=== PATIENT | female | born 1940 | race Caucasian/White ===

== ENCOUNTER 2021-06-25 10:57 | Emergency (ER) | payer MEDICARE ==
[2021-06-25] MEDS ORDERED: BUPIVACAINE 0.5% PF 10 ML VIAL SUBQ ONE (12:27)
[2021-06-25] MEDS ORDERED: HYDROmorphone 0.5 MG/0.5 ML SYRINGE IVP STA (12:29)
[2021-06-25] MEDS ORDERED: AMPICILLIN/SULBACTAM 3 GM in SODIUM CHLORIDE 0.9% MINIBAG 100 ML IV STA (12:29)
--- NOTE | 2021-06-25 12:32 | ED Physician Documentation ---
PD HPI UPPER EXT INJURY - Stated complaint Stated Complaint: CAT SCRATCH RT HAND - Chief complaint Chief Complaint: Ext Problem - History obtained from History obtained from: Patient, Family - Additonal information Additional information: The patient comes to the emergency department chief complaint of cat scratch to right wrist. She states that this happened 3 days ago and that it was her own cat that scratched her. The cat was starting to fight with a dog that had come over to visit and the patient tried to intervene. The cat scratch the patient in several places and over the last couple of days, patient has noticed increasing redness of a scratch that occurred over her ulnar styloid. The patient states she has noticed increasing edema of her hand and especially her forearm. She is also noticed a fluctuant area over her wrist scratch. Patient denies fevers or chills. No other complaints at this time. Review of Systems Ten Systems: 10 systems reviewed and negative Constitutional: reports: Reviewed and negative Eyes: reports: Reviewed and negative Ears: reports: Reviewed and negative Nose: reports: Reviewed and negative Throat: reports: Reviewed and negative Cardiac: reports: Reviewed and negative Respiratory: reports: Reviewed and negative GI: reports: Reviewed and negative : reports: Reviewed and negative Skin: reports: Other (Redness/tenderness/swelling distal right upper extremity) Musculoskeletal: reports: Reviewed and negative Neurologic: reports: Reviewed and negative Psychiatric: reports: Reviewed and negative Endocrine: reports: Reviewed and negative Immunocompromised: reports: Reviewed and negative PD PAST MEDICAL HISTORY - Past Medical History Past Medical History: Yes Cardiovascular: None Respiratory: None Neuro: Headaches Endocrine/Autoimmune: None GI: None 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 : None HEENT: None Psych: None Musculoskeletal: Scoliosis, Other Derm: None - Past Surgical History Past Surgical History: Yes HEENT: Tonsil/Adenoidectomy - Present Medications Home Medications: Ambulatory Orders Medication Instructions Recorded Confirmed Amox/Clav 875/125 [Augmentin] 1 each PO Q12H #20 tablet 06/25/21 HYDROcod/ACETAM 5/325 [[place] 5/325] 1 - 2 tablet PO Q6H PRN #14 tablet 06/25/21 - Allergies Allergies/Adverse Reactions: Allergies Allergy/AdvReac Type Severity Reaction Status Date / Time lidocaine Allergy Edema Verified 06/25/21 11:04 - Social History Does the pt smoke?: No Smoking Status: Never smoker Does the pt drink ETOH?: Yes Does the pt have substance abuse?: No - Immunizations Immunizations are current?: No Immunizations: TDAP >10years/unknown PD ED PE NORMAL - Vitals Vital signs reviewed: Yes - General General: Alert and oriented X 3, No acute distress, Well developed/nourished - HEENT HEENT: Atraumatic, PERRL, EOMI, Moist mucous membranes - Neck Neck: Supple, no meningeal sign - Cardiac Cardiac: Strong equal pulses - Respiratory Respiratory: No respiratory distress - Derm Derm: Warm and dry, Other (Erythema, Moderate, right forearm, with moderate tenderness. 3 cm fluctuance and intense erythema with a purulent appearing 4 mm scratch over the ulnar styloid area.) - Extremities Extremities: No deformity, Other (Moderate edema, forearm on right; mild edema of right hand.) - Neuro Neuro: Alert and oriented X 3 - Psych Psych: Normal mood, Normal affect Results - Vitals Vitals: Vital Signs - 24 hr 06/25/21 06/25/21 11:05 14:38 Temperature 36 C L 36.8 C Heart Rate 99 93 Respiratory 18 16 Rate Blood Pressure 156/80 H 153/74 H O2 Saturation 99 97 Oxygen O2 Source Room air Procedures - Abscess I&D (location) Right wrist Preparation: Alcohol, Marcaine 0.5% Incision: Incised with scalpel, Purulent drainage, Irrigated, Packed Other: Pt tolerated well, Dressing applied, Antibiotic prescribed PD MEDICAL DECISION MAKING - ED course Complexity details: considered differential, d/w patient ED course: The patient was started on Unasyn and given a dose of Dilaudid. She stated she was allergic to lidocaine but had been able to have some other kind of local anesthetics, and I explained to her that we could try bupivacaine, though this is in the same family and I cannot guarantee that she will not have an allergic reaction to this. She reported that her reaction to lidocaine had been swelling and blistering. Bupivacaine was administered and patient did not have any discernible reaction to this. Small amount of pus was drained from the abscess cavity and the cavity was irrigated and packed is above. I have prescribed Augmentin for the patient and advised her to return immediately for any signs of worsening. We have also discussed wound care at home and the need for wound recheck and packing removal in 2 days. Departure - Departure Disposition: 01 Home, Self Care Clinical Impression: Abscess, Cat scratch Cellulitis Qualifiers: Site of cellulitis: extremity Site of cellulitis of extremity: upper extremity Laterality: right Qualified Code(s): L03.113 - Cellulitis of right upper limb Condition: Stable Instructions: ED Abscess IandD, ED Infec Skin Cellulitis Prescriptions: Amox/Clav 875/125 [Augmentin] 1 each PO Q12H #20 tablet HYDROcod/ACETAM 5/325 [[place] 5/325] 1 - 2 tablet PO Q6H PRN #14 tablet PRN Reason: Pain Comments: You have been given a dose of IV antibiotics in the emergency department. You had a small abscess, or pus pocket, over the outside of your wrist where the cat scratched you. This is been incised and drained today. This should help with the infection and allowed to the antibiotics to be more effective in getting rid of the infection in your forearm. Please take the antibiotics every day as prescribed. Take your first dose of oral antibiotics this evening. You should elevate your arm whenever possible. You may use the pain medication as needed. Please follow-up in 2 days with either your primary care physician or urgent care/walk-in clinic to have your wound rechecked. If you cannot be seen in either these venues, you may return to the emergency department. At that time, it will be determined whether or not you should have your wound repacked. If you feel like the infection is drastically worsening over the next day or so, please come in immediately for reevaluation. [facility] [place]. Discharge Date/Time: 06/25/21 14:38
[2021-06-25] MEDS ORDERED: BUPIVACAINE 0.5% PF 30 ML VIAL SUBQ ONE (14:00)
[2021-06-25 14:38] VITALS: BP 153/74
== END 2021-06-25 14:38 | disposition home or self-care (01) ==
LOC: ED 10:57
DX: S60.811A Abrasion of right wrist, initial encounter (principal); W55.03XA Scratched by cat, initial encounter; L03.113 Cellulitis of right upper limb
CPT/HCPCS: 10060; 96365; 96375; 99282; 99284; J1170

== ENCOUNTER 2021-06-27 10:45 | Emergency (ER) | payer MEDICARE ==
[2021-06-27] MEDS ORDERED: BUPIVACAINE 0.5% PF 10 ML VIAL SUBQ STA (11:13)
--- NOTE | 2021-06-27 11:15 | ED Physician Documentation ---
PD HPI WOUND RECHECK - Stated complaint Stated Complaint: WOUND ON RT FOREARM - Chief complaint Chief Complaint: Wound - Histroy obtained from History obtained from: Patient - Additional information Additional information: This is an 80-year-old woman who was seen by my partner 2 days ago for infected cat scratches to the right wrist. She was given Unasyn and an I&D was done over the ulnar styloid. She returns for packing removal and wound check. Pain is not more less than it was. No fevers or chills. There is a new painful lump though near the distal radius anteriorly. Mild nausea with the Augmentin but doing okay with it. 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 : None HEENT: None Psych: None Musculoskeletal: Scoliosis, Other Derm: None - Past Surgical History Past Surgical History: Yes HEENT: Tonsil/Adenoidectomy - Present Medications Home Medications: Ambulatory Orders Medication Instructions Recorded Confirmed Amox/Clav 875/125 [Augmentin] 1 each PO Q12H #20 tablet 06/25/21 06/27/21 HYDROcod/ACETAM 5/325 [[place] 5/325] 1 - 2 tablet PO Q6H PRN #14 tablet 06/25/21 06/27/21 HYDROcod/ACETAM 5/325 [[place] 5/325] 1 - 2 tab PO Q6H PRN #15 tablet 06/27/21 - Allergies Allergies/Adverse Reactions: Allergies Allergy/AdvReac Type Severity Reaction Status Date / Time lidocaine Allergy Edema Verified 06/27/21 11:01 - Social History Does the pt smoke?: No Smoking Status: Never smoker Does the pt drink ETOH?: Yes Does the pt have substance abuse?: No - Immunizations Immunizations are current?: No Immunizations: TDAP >10years/unknown PD ED PE NORMAL - Vitals Vital signs reviewed: Yes - General General: Alert and oriented X 3, No acute distress - Extremities Extremities: Other (see MDM, text box too small) - Neuro Neuro: Alert and oriented X 3, Normal speech - Psych Psych: Normal mood, Normal affect Results - Vitals Vitals: Vital Signs - 24 hr 06/27/21 10:59 Temperature 36.0 C L Heart Rate 90 Respiratory 16 Rate Blood Pressure 177/75 H O2 Saturation 97 Oxygen O2 Source Room air Procedures - Abscess I&D (location) The abscess on the ulnar styloid was reincised and packed. A new abscess on the radial side was incised and packed Preparation: Confirmed with ultrasound, Marcaine 0.5% (She had a lot of pain previously with the incision and drainage and was premedicated this time with some Dilaudid with good effect) Incision: Incised with scalpel, Loculations broken, Culture obtained Other: Pt tolerated well PD MEDICAL DECISION MAKING - ED course ED course: R wrist exam: Multiple scratches and fairly bruised right forearm with edema about the right wrist. Limited range of motion due to pain but not so limited to suggest a sep tic joint. There was a packed wound near the ulnar styloid and the packing was removed with still significant purulent drainage. There is a new abscess near the radial artery anteriorly. Departure - Departure Disposition: 01 Home, Self Care Clinical Impression: Abscess, Cat scratch Condition: Good Record reviewed to determine appropriate education?: Yes Instructions: ED Abscess IandD Prescriptions: HYDROcod/ACETAM 5/325 [[place] 5/325] 1 - 2 tab PO Q6H PRN #15 tablet PRN Reason: Pain Comments: I sent your prescription electronically to [facility] in [place]. Return Friday morning for packing removal and wound check. Sooner if worsening. Continue antibiotics. I am prescribing a short course of narcotic pain medication for you. These are potentially dangerous and addictive medications that should be used carefully. These medications may constipate you. Take an [id number]-rokvpth stool softener (docusate) twice daily with plenty of water while taking these medications. If you go 24 hours without a bowel movement, take [id number] miralax, per package instructions. Do not drink or drive while taking these medications. If you received narcotic or sedating medications while in the emergency department, do not drive for 24 hours. Store this medication in a safe, secure place and out of reach of children. It is a violation of federal law to give or sell this medication to another person or to use in a manner other than prescribed. The ED will not refill narcotic prescriptions, including prescriptions lost or stolen. To dispose of unwanted medications: 1. [facility] at [address] in [place] has a medication drop box. They accept prescription medications (in pill form) Friday through Friday 9:00 a.m. to 5:00 p.m. 2. The [facility] [employer] accepts prescription medications (in pill form only) for disposal year round. Call for more information. 3. Contact the [facility] for the next [facility] sponsored prescription drug collection event. , [phone], or [phone]; Note that many narcotic pain relievers also contain Tylenol/acetaminophen. Please ensure that your total dose of acetaminophen from all sources does not exceed 3 g (3000 mg) per day.
[2021-06-27] MEDS: HYDROmorphone 1 MG/ML CARPUJECT IM STA (11:23)
[2021-06-27] MEDS: BUPIVACAINE 0.5% PF 30 ML VIAL SUBQ STA (11:31)
[2021-06-27 12:14] VITALS: BP 162/84
== END 2021-06-27 12:18 | disposition home or self-care (01) ==
LOC: ED 10:45
DX: S61.511D Laceration without foreign body of right wrist, subsequent encounter (principal); L02.413 Cutaneous abscess of right upper limb; W55.03XD Scratched by cat, subsequent encounter
CPT/HCPCS: 10061; 87070; 87077; 87181; 87205; 96372; 99282; 99283; J1170

== ENCOUNTER 2021-06-29 09:28 | Emergency (ER) | payer MEDICARE ==
[2021-06-29 09:38] VITALS: BP 132/74
--- NOTE | 2021-06-29 10:08 | ED Physician Documentation ---
PD HPI WOUND RECHECK - Stated complaint Stated Complaint: WOUND CHECK RT HAND - Chief complaint Chief Complaint: Wound - Histroy obtained from History obtained from: Patient - History of Present Illness Location: Right Hand Timing - onset: How many weeks ago (1) Associated symptoms: Redness, Swelling, Drainage Recently seen: Emergency Dept (seen in ER for redness/swelling few days ago, subsequent to cat bites hand a week ago. Had I&D of thenar wound infection and then returned and had I&D another area with packing. Directed to return 2 days and she is here. 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 HEENT: None Psych: None Musculoskeletal: Scoliosis, Other Derm: None - Past Surgical History Past Surgical History: Yes HEENT: Tonsil/Adenoidectomy - Present Medications Home Medications: Ambulatory Orders Medication Instructions Recorded Confirmed Amox/Clav 875/125 [Augmentin] 1 each PO Q12H #20 tablet 06/25/21 06/27/21 HYDROcod/ACETAM 5/325 [[place] 5/325] 1 - 2 tablet PO Q6H PRN #14 tablet 06/25/21 06/27/21 HYDROcod/ACETAM 5/325 [[place] 5/325] 1 - 2 tab PO Q6H PRN #15 tablet 06/27/21 HYDROcod/ACETAM 5/325 [[place] 5/325] 1 ea PO Q6H PRN #18 tablet 06/29/21 Mupirocin 2% Oint [Bactroban 2% 1 applic TOP TID #15 gm 06/29/21 Oint] - Allergies Allergies/Adverse Reactions: Allergies Allergy/AdvReac Type Severity Reaction Status Date / Time lidocaine Allergy Edema Verified 06/29/21 09:38 - Social History Does the pt smoke?: No Smoking Status: Never smoker Does the pt drink ETOH?: Yes Does the pt have substance abuse?: No - Immunizations Immunizations are current?: No Immunizations: TDAP >10years/unknown PD ED PE NORMAL - Vitals Vital signs reviewed: Yes - General General: Alert and oriented X 3, Well developed/nourished - Cardiac Cardiac: RRR, No murmur - Respiratory Respiratory: No respiratory distress, Clear bilaterally - Derm Derm: Normal color, Warm and dry - Extremities Extremities: Other (right hand with redness and swelling over most of thenar area and dorsum proximal hand. There is small packing in incisions there and dorsum ulnar side. Packings removed with some pus out after that. some skin over 5th MC that is removed with forcep/scissor. ) - Neuro Neuro: Alert and oriented X 3, No motor deficit, No sensory deficit, Normal speech Results - Vitals Vitals: Vital Signs - 24 hr 06/29/21 09:35 Temperature 36.9 C Heart Rate 107 H Respiratory 16 Rate Blood Pressure 132/74 H O2 Saturation 97 Oxygen O2 Source Room air PD MEDICAL DECISION MAKING - ED course Complexity details: reviewed old records, considered differential (having draining from the abscess sites which improves with the benja removed with forceps. SOme pus still out easily from wounds. FOrearm lacs/bites without infection. ), d/w patient Departure - Departure Disposition: 01 Home, Self Care Clinical Impression: Abscess re-check Condition: Stable Record reviewed to determine appropriate education?: Yes Prescriptions: Mupirocin 2% Oint [Bactroban 2% Oint] 1 applic TOP TID #15 gm HYDROcod/ACETAM 5/325 [[place] 5/325] 1 ea PO Q6H PRN #18 tablet PRN Reason: Pain Comments: At this point the wounds do not need repacking but should continue to drain on their own. Start cleansing the wounds 2-3 times daily with soap and water or lukewarm soaks to promote further drainage. Apply mupirocin topical antibiotic after cleansing. Rebandage to help keep the areas covered and protected. Continue your antibiotic. I would anticipate improvement in the redness in such over the next 2 to 3 days. Recheck if not improved well in that timeframe. I sent prescription to [facility] pharmacy. Discharge Date/Time: 06/29/21 11:14
[2021-06-29] MEDS: MUPIROCIN 2% OINT 1 GM TOP STA (10:52)
== END 2021-06-29 11:14 | disposition home or self-care (01) ==
LOC: ED 09:28
DX: L02.511 Cutaneous abscess of right hand (principal); W55.01XD Bitten by cat, subsequent encounter
CPT/HCPCS: 99282; 99283; A9270